=== PATIENT | female | born 1995 | race Caucasian/White ===

== ENCOUNTER 2023-04-01 13:49 | Inpatient (IN) | payer OTHER ==
[~2023-04-01 13:49] MED LIST: Bupivacaine 0.25% HCL 30 ML VIAL ONE
[2023-04-01 14:21] VITALS: BMI 27.1
[2023-04-01] MEDS ORDERED: hydrALAZINE 20 MG/ML VIAL SLOW IVP PRN ×2 (14:50→15:31)
[2023-04-01] MEDS ORDERED: Lidocaine 1% (PF) 30 ML VIAL SC PRN ×2 (15:28→15:30)
[2023-04-01] MEDS ORDERED: Tranexamic Acid 1,000 MG/10 ML VIAL IVP PRN (15:31)
[2023-04-01] MEDS ORDERED: Acetaminophen 500 MG TAB PO PRN (15:31)
[2023-04-01] MEDS ORDERED: fentaNYL 50 mcg/mL 1 mL Vial SLOW IVP PRN (15:31)
[2023-04-01] MEDS ORDERED: Misoprostol 200 MCG TAB PR PRN (15:31)
[2023-04-01] MEDS ORDERED: Ondansetron PF 4 MG/2 ML Vial IVP PRN (15:31)
[2023-04-01] MEDS ORDERED: Diphenoxylate HCl/Atropine Tablet PO PRN (15:31)
[2023-04-01] MEDS ORDERED: Carboprost 250 MCG/ML AMP IM PRN (15:31)
[2023-04-01] MEDS ORDERED: Promethazine HCl 25 MG/ML VIAL IM PRN ×2 (15:31→22:16)
[2023-04-01] MEDS ORDERED: Methylergonovine 0.2 MG/ML VIAL IM PRN (15:31)
[2023-04-01] MEDS ORDERED: Oxytocin 30 units/NS 500 ML 500 ML IV SCH (15:45)
[2023-04-01 15:51] LABS: Hematocrit 30.5 % (34.9-44.5); Hemoglobin 9.8 g/dL (12.0-15.5); Mean Corpuscular HGB CONC 32.1 g/dL (32.0-36.0); Mean Corpuscular Hemoglobin 28.5 pg (27.0-33.0); Mean Corpuscular Volume 88.7 fl (81.6-98.3); Mean Platelet Volume 10.6 fl (7.4-10.4); Platelet Count 196 10x3/uL (150-450); Red Blood Cell (RBC) Count 3.44 10x6/uL (3.90-5.03)
[2023-04-01 16:21] LABS: Syphilis Antibody Nonreactive (Nonreactive); Syphilis Antibody Index 0.06 S/CO (<1.00 Non-Reactive)
[2023-04-01 16:23] LABS: Hep B Surf Ag - L&D Non-Reactive S/CO (NonReactive)
[2023-04-01] MEDS: Oxytocin 30 units/NS 500 ML 500 ML IV SCH (17:01)
[2023-04-01] MEDS: Lactated Ringer's 1,000 ML IV SCH (21:29)
[2023-04-01] MEDS: fentaNYL/Ropivacaine Epidural 100 ML ONE (22:04)
[2023-04-01] MEDS ORDERED: diphenhydrAMINE 50 MG/ML VIAL IVP PRN (22:16)
[2023-04-01] MEDS ORDERED: Lactated Ringer's 500 ML IV PRN (22:16)
[2023-04-01] MEDS ORDERED: Moisturizing Cream (Eucerin) 113 GM JAR TOP PRN (22:16)
[2023-04-01] MEDS ORDERED: Naloxone HCl 0.4 mg/ml Vial IVP PRN ×2 (22:16)
[2023-04-01] MEDS ORDERED: ePHEDrine Sulfate 50 MG/10 ML VIAL SLOW IVP PRN (22:16)
[2023-04-01] MEDS ORDERED: Communication Order-Pharmacy FS SCH (22:30)
[2023-04-02] MEDS: Acetaminophen 325 MG TAB PO PRN (00:10)
[2023-04-02] MEDS: Ibuprofen 800 MG TAB PO PRN (00:10)
[2023-04-02] MEDS ORDERED: diphenhydrAMINE 25 MG CAP PO PRN (02:02)
[2023-04-02] MEDS ORDERED: Milk Of Magnesia 30 ML UDCUP PO PRN (02:02)
[2023-04-02] MEDS ORDERED: Oxytocin 30 units/NS 500 ML 500 ML IV SCH (02:02)
[2023-04-02] MEDS ORDERED: Ondansetron PF 4 MG/2 ML Vial IVP PRN (02:02)
[2023-04-02] MEDS ORDERED: Bisacodyl 10 MG SUPP PR PRN (02:02)
[2023-04-02] MEDS ORDERED: hydrALAZINE 20 MG/ML VIAL SLOW IVP PRN (02:02)
[2023-04-02] MEDS ORDERED: Misoprostol 200 MCG TAB VAG PRN (02:02)
[2023-04-02] MEDS: Benzocaine-Menthol 82.5 ML CAN TOP PRN (04:14)
[2023-04-02] MEDS: HYDROcodone/Acetaminophen 5/325 mg Tablet PO SCH (07:32)
[2023-04-02] MEDS: Ondansetron PF 4 MG/2 ML Vial IVP PRN (07:32)
[2023-04-02 08:05] LABS: #Eosinphils 0.1 10x3/uL (0.0-0.5); #Monocytes 0.7 10x3/uL (0.0-1.1); #Neutrophils 8.5 10x3/uL (1.5-8.4); %Basophils 0.3 % (0.0-2.0); %Eosinophils 1.1 % (0.0-6.0); %Lymphocytes 18.8 % (18.0-47.0); %Neutrophils 73.5 % (40.0-75.0); Hematocrit 25.8 % (34.9-44.5); Hemoglobin 8.5 g/dL (12.0-15.5); Mean Corpuscular HGB CONC 32.9 g/dL (32.0-36.0); Mean Corpuscular Hemoglobin 28.7 pg (27.0-33.0); Mean Corpuscular Volume 87.2 fl (81.6-98.3); Mean Platelet Volume 10.7 fl (7.4-10.4); Platelet Count 157 10x3/uL (150-450); Red Blood Cell (RBC) Count 2.96 10x6/uL (3.90-5.03); White Blood Cell (WBC) Count 11.5 10x3/uL (3.5-10.5)
[2023-04-02] MEDS: Ferrous Sulfate 325 MG TAB PO SCH (08:51)
[2023-04-02] MEDS: Acetaminophen 325 MG TAB PO SCH ×2 (08:52→19:27)
[2023-04-02] MEDS: Docusate 100 MG CAP PO SCH (08:52)
[2023-04-02] MEDS: Ibuprofen 800 MG TAB PO SCH (08:52)
[2023-04-02 16:22] VITALS: TEMP 98.1
[2023-04-02] MEDS: Boostrix 0.5 ML (Tdap) VIAL (>/=7 yrs of age) IM ONE (19:23)
[2023-04-03 06:10] LABS: #Eosinphils 0.3 10x3/uL (0.0-0.5); #Monocytes 0.5 10x3/uL (0.0-1.1); #Neutrophils 6.6 10x3/uL (1.5-8.4); %Basophils 0.2 % (0.0-2.0); %Eosinophils 2.7 % (0.0-6.0); %Lymphocytes 24.2 % (18.0-47.0); %Monocytes 5.4 % (0.0-10.0); %Neutrophils 67.2 % (40.0-75.0); Hematocrit 25.5 % (34.9-44.5); Mean Corpuscular HGB CONC 31.4 g/dL (32.0-36.0); Mean Corpuscular Hemoglobin 28.2 pg (27.0-33.0); Mean Corpuscular Volume 89.8 fl (81.6-98.3); Mean Platelet Volume 10.9 fl (7.4-10.4); Platelet Count 178 10x3/uL (150-450); RBC Distribution Width 13.2 % (11.5-14.5); Red Blood Cell (RBC) Count 2.84 10x6/uL (3.90-5.03); White Blood Cell (WBC) Count 9.8 10x3/uL (3.5-10.5)
[2023-04-03 08:37] VITALS: BP 100/71
== END 2023-04-03 13:41 | disposition home or self-care (01) | DRG 807 ==
LOC: CSHLD/OP 13:49 → CSHLD 18:08 → CSHPP 04-02 01:45
PROVIDERS: ADMIT Student in an Organized Health Care Education/Training Program; ATTEND Student in an Organized Health Care Education/Training Program
PROC: 10E0XZZ Delivery of Products of Conception, External Approach (ICD-10-PCS; principal; 2023-04-01)
PROC: 0KQM0ZZ Repair Perineum Muscle, Open Approach (ICD-10-PCS; 2023-04-01)
PROC: 10907ZC Drainage of Amniotic Fluid, Therapeutic from Products of Conception, Via Natural or Artificial Opening (ICD-10-PCS; 2023-04-01)
PROC: 0UQGXZZ Repair Vagina, External Approach (ICD-10-PCS; 2023-04-01)
DX: O62.9 Abnormality of forces of labor, unspecified (principal); Z37.0 Single live birth; O99.62 Diseases of the digestive system complicating childbirth; K59.00 Constipation, unspecified; O99.02 Anemia complicating childbirth; D64.9 Anemia, unspecified; O99.344 Other mental disorders complicating childbirth; F41.9 Anxiety disorder, unspecified; Z3A.39 39 weeks gestation of pregnancy; O70.1 Second degree perineal laceration during delivery; O71.82 Other specified trauma to perineum and vulva
CPT/HCPCS: 36415; 51702; 85025; 85027; 86780; 86850; 86900; 86901; 87340; 99285; J0665; J2405; J2590; J7120